=== PATIENT | female | born 1995 | race Caucasian/White ===

== ENCOUNTER 2017-11-14 10:35 | Inpatient (IN) | payer OTHER ==
[2017-11-14] MEDS ORDERED: ELECTROLYTE-148 SOLN 1,000 ML IV SCH ×2 (11:30→12:30)
[2017-11-14 11:55] VITALS: BMI 26.6
--- NOTE | 2017-11-14 12:07 | HP ---
Past Medical History - Primary Care Physician PCP:: Say Carver - Admission Chief Complaint: 22yo P0 @ 40.1wk with LOF on. 8:30pm 11/14/17 and now regular contructions. no Vaginal bleeding, + movement History of Present Illness: 1. 37lb weight gain - normal GCT 2. Former smoker 3. GBS negative, no need for prophylaxis History Source: Patient Limitations to Obtaining History: No Limitations - Past Medical History ...: 1 ...Para: 0 ...LMP: 01/30/17 ... Weeks Gestation by Dates: 41.1 ...EDC by Dates: 11/06/17 ...EDC by Sono: 11/13/17 - Past Surgical History Hx Myomectomy: No Hx Transabdominal Cerclage: No - Smoking History Smoking history: Former smoker Have you smoked in the past 12 months: No If you are a former smoker, when did you quit?: greater than 3 yrs. - only a social smoker - Alcohol/Substance Use Hx Alcohol Use: No Home Medications - Allergies Allergies/Adverse Reactions: Allergies Allergy/AdvReac Type Severity Reaction Status Date / Time No Known Drug Allergies Allergy Verified 11/14/17 11:23 Review of Systems - Review of Systems Constitutional: reports: No Symptoms Eyes: reports: No Symptoms HENT: reports: No Symptoms Neck: reports: No Symptoms Cardiovascular: reports: No Symptoms Respiratory: reports: No Symptoms Gastrointestinal: reports: No Symptoms Genitourinary: reports: No Symptoms Breasts: reports: No Symptoms Reported Musculoskeletal: reports: No Symptoms Integumentary: reports: No Symptoms Neurological: reports: No Symptoms Endocrine: reports: No Symptoms Hematology/Lymphatic: reports: No Symptoms Psychiatric: reports: No Symptoms Physical Exam - Maternity Vital Signs: Vital Signs Temperature 97.7 F 11/14/17 11:37 Pulse Rate 79 11/14/17 11:37 Respiratory Rate 20 11/14/17 11:37 Blood Pressure 107/71 11/14/17 11:37 O2 Sat by Pulse Oximetry (%) Constitutional: Yes: Well Nourished, No Distress, Calm Eyes: Yes: WNL HENT: Yes: WNL Neck: Yes: WNL Cardiovascular: Yes: WNL Lungs: Clear to auscultation Breast(s): Yes: WNL - Abdominal Exam/OB Fundal Height: 39 (EFW - 7.5lb) Number of Fetuses: Single Presentation: Vertex Contractions: Yes Regularity: Regular (Q3min) Intensity: Moderate Monitor Mode: External Heart Rate (range): 145 Heart Rate Location: Midline Category: I Accelerations: Uniform Decelerations: None - Vaginal Exam/OB Vaginal Bleediing: No Dilatation (cm): 3 Effacement (%): 100 Amniotic Membrane Status: Ruptured Nitrazine Test: Positive Amniotic Fluid: Yes: Clear Presentation: Vertex/Position Station: -3 - Physical Exam Musculoskeletal: Yes: WNL Extremities: Yes: WNL Integumentary: Yes: WNL ...Motor Strength: WNL Psychiatric: Yes: WNL Assessment/Plan 22yo P0 @ 40.1wks with PROM for 16hr in early labor No evidence of infection both mother and baby stable FHR Category 1 Mother adequate pelvis Admit to L&D IVF, Labs Desires epidural for pain control - Anesthesia aware Anticipate
[2017-11-14 12:37] LABS: BASO % 0.2 % (0-2.0); EOS % 0.2 % (0-4.5); HEMATOCRIT 39.2 % (32.4-45.2); HEMOGLOBIN 13.4 GM/dL (10.7-15.3); LYMPH % 12.3 % (8-40); MCHC 34.1 g/dl (32.0-36.0); MEAN CELL VOLUME 87.9 fl (80-96); MEAN PLT VOLUME 9.2 fl (7.5-11.1); MONO % 4.9 % (3.8-10.2); NEUT % 82.4 % (42.8-82.8); PLATELET COUNT 174 K/MM3 (134-434); RBC 4.46 M/mm3 (3.60-5.2); RDW 13.2 % (11.6-15.6); WHITE BLOOD COUNT 13.7 K/mm3 (4.0-10.0)
[2017-11-14 12:49] LABS: INR 0.93 (0.83-1.09)
[2017-11-14 12:52] LABS: ACTIVATED PTT 24.3 SECONDS (25.2-36.5)
[2017-11-14] MEDS ORDERED: FENTANYL/BUPIVACAINE/NS/PF - PCEA - 50 ML DISP.SYRIN EP ONE ×4 (12:58→23:08)
[2017-11-14] MEDS ORDERED: BUPIVACAINE HCL/PF 0.25% (2.5MG/ML) 10 ML VIAL ONE (13:13)
[2017-11-14] MEDS ORDERED: LIDO 2%/EPI 1:200000 PRESRVFRE (20 ML SDVIAL) ONE (13:14)
[2017-11-14 13:24] LABS: ANION GAP 8 MMOL/L (8-16); BLOOD UREA NITROGEN 15 mg/dL (7-18); CALCIUM 8.9 mg/dL (8.5-10.1); CHLORIDE 105 mmol/L (98-107); CO2 24 mmol/L (21-32); CREATININE 0.6 mg/dL (0.55-1.3); GLUCOSE,RANDOM 65 mg/dL (74-106); POTASSIUM 4.3 mmol/L (3.5-5.1); SODIUM 137 mmol/L (136-145)
[2017-11-14] MEDS: FENTANYL/BUPIVACAINE/NS/PF - PCEA - 50 ML DISP.SYRIN EP SCH (13:25)
[2017-11-14] MEDS ORDERED: NALOXONE HCL 0.4 MG/ML VIAL IVPUSH PRN (13:40)
[2017-11-14] MEDS ORDERED: AMPICILLIN SODIUM 2 GM VIAL ONE (14:23)
[2017-11-14] MEDS ORDERED: AMPICILLIN - 2 GM in SODIUM CHLORIDE 100 ML IVPB ONE (14:30)
[2017-11-14 15:53] LABS: RPR NONREACTIVE (NONREACTIVE)
[2017-11-14] MEDS ORDERED: AMPICILLIN SODIUM 1 GM VIAL ONE ×2 (18:00→22:39)
[2017-11-14] MEDS: AMPICILLIN - 1 GM in SODIUM CHLORIDE 100 ML IVPB SCH ×2 (18:30→22:30)
--- NOTE | 2017-11-14 18:31 | PN ---
Ante-Partal Exam - Subjective Subjective: Pt w/o complaints Vital Signs: Vital Signs Temperature 98.8 F 11/14/17 18:00 Pulse Rate 84 11/14/17 17:25 Respiratory Rate 20 11/14/17 17:25 Blood Pressure 141/79 11/14/17 17:25 O2 Sat by Pulse Oximetry (%) 100 11/14/17 17:25 Bleeding: Yes Bleeding Description: Mild Headache: No Visual changes: No Right upper quadrant pain: No Pain (scale 1-10): 0 - Contractions Contractions: Yes (q2-3min) Regularity: Regular Intensity: Unaware Monitor Mode: External - Exam during Labor Heart Rate: 135 Variability: Moderate Heart Rate Location: Midline Category: II Monitor Accelerations: Present Monitor Decelerations: Variable (occasional to 120) Exam: Vaginal Dilatation (cm): 7 Effacement (%): 90 Amniotic Membrane Status: Leaking Presentation: Vertex Station: -1 - Intrapartum Hemorrhage Risk Medium Risk Factors: None High Risk Factors: None Risk Score: 0 Risk Level: Low Risk - Assessment/Plan Assessment/Plan: 22yo P0 with spont active labor. Pt with progressing dilation. Fetus with occasional variables but o/w reassuring tracing. Plan to monitor labor.
--- NOTE | 2017-11-14 20:44 | PN ---
Ante-Partal Exam - Subjective Subjective: No complaints Vital Signs: Vital Signs Temperature 98.5 F 11/14/17 20:00 Pulse Rate 102 H 11/14/17 20:00 Respiratory Rate 17 11/14/17 20:00 Blood Pressure 120/67 11/14/17 20:00 O2 Sat by Pulse Oximetry (%) 98 11/14/17 20:00 Bleeding: Yes Bleeding Description: Mild Headache: No Visual changes: No Right upper quadrant pain: No Pain (scale 1-10): 0 - Contractions Contractions: Yes (q2-3min) Regularity: Regular Intensity: Moderate Monitor Mode: External - Exam during Labor Heart Rate: 140 Variability: Moderate Heart Rate Location: Midline Category: II Monitor Accelerations: Present Monitor Decelerations: Variable (occasional) Exam: Vaginal Dilatation (cm): 7 Effacement (%): 90 Amniotic Membrane Status: Leaking Presentation: Vertex Station: -1 - Intrapartum Hemorrhage Risk Medium Risk Factors: None High Risk Factors: None Risk Score: 0 Risk Level: Low Risk - Assessment/Plan Assessment/Plan: 89yo P0 with spontaneous active labor. The fetus with Category II tracing due to occasional variable decels but has moderate variability and accels. The pt has a heavy bloody show but no active vaginal bleeding, stable VS. The pt with arrest of dilation. The contractions are q2-3 minutes and I plan on monitoring labor w/o oxytocin at this time.
[2017-11-14 22:00] LABS: BASO % 0.5 % (0-2.0); EOS % 0.2 % (0-4.5); HEMATOCRIT 39.5 % (32.4-45.2); HEMOGLOBIN 13.5 GM/dL (10.7-15.3); LYMPH % 15.3 % (8-40); MCH 30.5 pg (25.7-33.7); MCHC 34.2 g/dl (32.0-36.0); MEAN CELL VOLUME 89.2 fl (80-96); MEAN PLT VOLUME 9.6 fl (7.5-11.1); MONO % 7.3 % (3.8-10.2); NEUT % 76.7 % (42.8-82.8); PLATELET COUNT 196 K/MM3 (134-434); RBC 4.43 M/mm3 (3.60-5.2); RDW 13.2 % (11.6-15.6)
[2017-11-14 22:24] LABS: INR 0.96 (0.83-1.09); PROTHROMBIN TIME (PATIENT) 11.3 SEC (9.7-13.0)
[2017-11-14 22:27] LABS: ACTIVATED PTT 24.6 SECONDS (25.2-36.5)
[2017-11-14] MEDS ORDERED: OXYTOCIN 30 UNITS in 0.9% NS 30 UNIT/500 ML INFUS.BAG IVPB ONE (22:39)
[2017-11-15] MEDS ORDERED: AMPICILLIN SODIUM 1 GM VIAL ONE ×2 (02:19→06:14)
[2017-11-15] MEDS: AMPICILLIN - 1 GM in SODIUM CHLORIDE 100 ML IVPB SCH ×2 (02:30→06:30)
[2017-11-15] MEDS ORDERED: FENTANYL/BUPIVACAINE/NS/PF - PCEA - 50 ML DISP.SYRIN EP ONE ×2 (02:31→06:19)
[2017-11-15] MEDS ORDERED: LIDOCAINE HCL 1% PRESERVATIVE FREE - 30ML VIAL ONE (04:52)
[2017-11-15] MEDS ORDERED: OXYTOCIN 20 UNITS in 0.9% NS 20 UNIT/1,000 ML INFUS.BAG IV ONE ×2 (04:52→11:27)
[2017-11-15] MEDS ORDERED: OXYTOCIN 30 UNITS in 0.9% NS 30 UNIT/500 ML INFUS.BAG IVPB ONE (07:24)
--- NOTE | 2017-11-15 07:30 | PN ---
Ante-Partal Exam - Subjective Subjective: No complaints Vital Signs: Vital Signs Temperature 98.3 F 11/15/17 07:00 Pulse Rate 71 11/15/17 06:45 Respiratory Rate 17 11/15/17 06:45 Blood Pressure 129/76 11/15/17 06:45 O2 Sat by Pulse Oximetry (%) 100 11/15/17 06:45 Bleeding: No Headache: No Visual changes: No Right upper quadrant pain: No Pain (scale 1-10): 4 - Contractions Contractions: Yes Regularity: Regular Intensity: Strong Monitor Mode: External - Exam during Labor Heart Rate: 140 Variability: Moderate Heart Rate Location: Midline Category: I Monitor Accelerations: Present Monitor Decelerations: None Exam: Vaginal Dilatation (cm): 8.5 Effacement (%): 90 Presentation: Vertex Station: 0 - Intrapartum Hemorrhage Risk Medium Risk Factors: None High Risk Factors: None Risk Score: 0 Risk Level: Low Risk - Assessment/Plan Assessment/Plan: Arrest of dilation Plan to proceed with C/S. Pt agreed.
[2017-11-15] MEDS ORDERED: LIDOCAINE HCL/PF 2% SDV 5ML VIAL ONE ×3 (08:19→08:51)
[2017-11-15] MEDS ORDERED: ELECTROLYTE-148 SOLN 500 ML IV ONE (08:20)
[2017-11-15] MEDS ORDERED: morphine SULFATE/Preservative Free 0.5 MG/ML (1cc Syringe) ONE ×7 (08:36)
[2017-11-15] MEDS ORDERED: ELECTROLYTE-148 SOLN 1,000 ML IV SCH ×2 (09:00→11:15)
[2017-11-15] MEDS ORDERED: MIDAZOLAM HCL 2 MG/2 ML SINGLE DOSE VIAL ONE (09:10)
[2017-11-15] MEDS ORDERED: ONDANSETRON 4 MG/2 ML VIAL IVPUSH PRN (09:32)
[2017-11-15] MEDS ORDERED: LACTATED RINGERS SOLUTION 1,000 ML IV SCH (09:45)
[2017-11-15 10:08] LABS: ARTERIAL BLD GAS O2 SATURATION 9.6 % (90-98.9); ARTERIAL BLOOD GAS BASE EXCESS -2.6 meq/l (-2-2); ARTERIAL BLOOD GAS PCO2 56.1 mmHg (35-45); ARTERIAL BLOOD GAS pH 7.27 (7.35-7.45)
[2017-11-15] MEDS ORDERED: IBUPROFEN 800 MG/8 ML IJ IVPB ONE (10:10)
[2017-11-15 10:12] LABS: VENOUS PC02 37.3 mmHg (38-52); VENOUS PH 7.38 (7.32-7.42); VENOUS PO2 34.1 mmHg (28-48)
[2017-11-15] MEDS ORDERED: CITRIC ACID/SODIUM CITRATE 30 ML UNIT-DOSE CUP PO ONE (11:15)
[2017-11-15] MEDS: OXYTOCIN 20 UNITS in 0.9% NS 20 UNIT/1,000 ML INFUS.BAG IV SCH ×2 (11:25→21:30)
[2017-11-15] MEDS ORDERED: OXYTOCIN 20 UNITS in 0.9% NS 1000 ML INFUS.BAG IV ONE (11:25)
[2017-11-15] MEDS ORDERED: oxyCODONE HCL 5 MG TABLET PO PRN ×2 (14:44)
[2017-11-15] MEDS ORDERED: METHYLERGONOVINE MALEATE 0.2 MG/1 ML AMP IM PRN (14:44)
[2017-11-15] MEDS: IBUPROFEN 800 MG/8 ML IJ IVPB PRN ×2 (15:58→21:57)
--- NOTE | 2017-11-16 01:13 | PN ---
Post Progress Note - Subjective Subjective: Patient without acute complaints. Tolerating clears, without complaints of nausea or vomiting. No ambulation yet. Denies fevers or chills. with supplementation Pain well controlled Hernandez removed this AM, no voiding yet. Denies flatus. Post Day: 1 Type of Delivery: Primary C/S Vital Signs: Vital Signs Temperature 98.1 F 11/15/17 20:30 Pulse Rate 56 L 11/15/17 20:30 Respiratory Rate 20 11/16/17 00:56 Blood Pressure 107/54 L 11/15/17 20:30 O2 Sat by Pulse Oximetry (%) 100 11/15/17 10:45 Breast Exam: Yes: Soft Uterus: Yes: Fundus Firm Incision: Yes: Dressing dry and intact Abdomen/GI: Yes: Abdomen soft, Abdominal Distention (mild, soft), Passing flatus , Tolerating PO Lochia: Yes: Serosa Lochia, amount: Small Extremities: Yes: Calves non-tender, Edema (trace) Activity: Ambulating - Labs Labs: CBC WBC 16.0 K/mm3 (4.0-10.0) H 11/14/17 21:00 RBC 4.43 M/mm3 (3.60-5.2) 11/14/17 21:00 Hgb 13.5 GM/dL (10.7-15.3) 11/14/17 21:00 Hct 39.5 % (32.4-45.2) 11/14/17 21:00 MCV 89.2 fl (80-96) 11/14/17 21:00 MCH 30.5 pg (25.7-33.7) 11/14/17 21:00 MCHC 34.2 g/dl (32.0-36.0) 11/14/17 21:00 RDW 13.2 % (11.6-15.6) 11/14/17 21:00 Plt Count 196 K/MM3 (134-434) 11/14/17 21:00 MPV 9.6 fl (7.5-11.1) 11/14/17 21:00 Absolute Neuts (auto) 12.2 K/mm3 (1.5-8.0) H 11/14/17 21:00 Neutrophils % 76.7 % (42.8-82.8) 11/14/17 21:00 Lymphocytes % 15.3 % (8-40) D 11/14/17 21:00 Monocytes % 7.3 % (3.8-10.2) 11/14/17 21:00 Eosinophils % 0.2 % (0-4.5) 11/14/17 21:00 Basophils % 0.5 % (0-2.0) 11/14/17 21:00 Nucleated RBC % 0 % (0-0) 11/14/17 21:00 Assessment/Plan 22 yo POD #1 s/p 1 CD, afebrile, vital signs stable, doing well 1. Continue routine postoperative care. 2. AM CBC without signs of anemia 3. Rh positive status, no rhogam indicated. 4. Encourage ambulation and incentive spirometer use 5. Continue oral pain medication 6. Anticipate discharge home postoperative day #3 or #4
[2017-11-16] MEDS: IBUPROFEN 800 MG/8 ML IJ IVPB PRN (05:10)
[2017-11-16] MEDS: OXYTOCIN 20 UNITS in 0.9% NS 20 UNIT/1,000 ML INFUS.BAG IV SCH (07:00)
[2017-11-16 08:35] LABS: BASO % 0.1 % (0-2.0); EOS % 0.8 % (0-4.5); HEMATOCRIT 34.8 % (32.4-45.2); HEMOGLOBIN 11.6 GM/dL (10.7-15.3); LYMPH % 16.1 % (8-40); MCH 29.9 pg (25.7-33.7); MCHC 33.3 g/dl (32.0-36.0); MEAN CELL VOLUME 89.7 fl (80-96); MEAN PLT VOLUME 9.4 fl (7.5-11.1); PLATELET COUNT 150 K/MM3 (134-434); RBC 3.87 M/mm3 (3.60-5.2); RDW 13.6 % (11.6-15.6); WHITE BLOOD COUNT 13.8 K/mm3 (4.0-10.0)
--- NOTE | 2017-11-16 13:10 | PN ---
Progress Note (short form) - Note Progress Note: Anesthesia POD#1 S/P under Epidural Anesthesia VSS,no N/V,no pain,legs strong. No complications to anesthesia seen. Maggie Rajan MD.
[2017-11-16] MEDS ORDERED: BISACODYL 10 MG SUPP.RECT RC PRN (14:44)
[2017-11-16] MEDS: IBUPROFEN 600 MG TABLET (FP) PO PRN (17:33)
[2017-11-16] MEDS: ACETAMINOPHEN 325 MG TABLET (FP) PO PRN (17:35)
[2017-11-16] MEDS: SIMETHICONE 80 MG TAB.CHEW (FP) PO PRN (17:35)
[2017-11-16] MEDS: FENTANYL/BUPIVACAINE/NS/PF - PCEA - 50 ML DISP.SYRIN EP SCH (21:24)
[2017-11-16] MEDS: AMPICILLIN - 1 GM in SODIUM CHLORIDE 100 ML IVPB SCH (21:25)
[2017-11-17] MEDS: IBUPROFEN 600 MG TABLET (FP) PO PRN ×4 (04:29→23:05)
[2017-11-17] MEDS: SIMETHICONE 80 MG TAB.CHEW (FP) PO PRN ×4 (04:29→23:05)
[2017-11-17] MEDS: ACETAMINOPHEN 325 MG TABLET (FP) PO PRN ×4 (04:30→23:05)
--- NOTE | 2017-11-17 07:03 | PN ---
Progress Note (short form) - Note Progress Note: pod 2 doing well, no c/o . voids ok. passing gas CBC, BMP 11/16/17 07:12 11/14/17 12:10 Last Vital Signs Temp Pulse Resp BP Pulse Ox 98.5 F 56 L 18 123/70 100 11/16/17 21:20 11/16/17 21:20 11/16/17 21:20 11/16/17 21:20 11/15/17 10:45 abdomen soft, no distension, no cva incision dry, clean no calf tenderness plan ambulate , cbc in am
--- NOTE | 2017-11-17 08:53 | PN ---
Delivery - Delivery Section: Primary, Low Flap Transverse Type of Anesthesia: Epidural Episiotomy/Laceration: None EBL (cc): 600 Delivery, Single - Stages of Labor Date 1st Stage Initiatied: 11/14/17 Time 1st Stage Initiated: 00:00 Date of Delivery: 11/15/17 Time of Delivery: 09:09 Time Placenta Delivered: 09:10 Placenta: Yes: Expressed, Manual Removal - Condition of Advisory Services Associate/Hoist Mechanic Present: Yes Name: Antionette Barron Gender: Female Weight: 3.685 kg Position: Left, OA Total Hours ROM (Hrs/Mins): 36 MIN 31HRS - 1 Minute Total Score: 9 5 Minutes Total Score: 9 - Feeding Plan Initial Plan: Exclusive throughout hospitalization
--- NOTE | 2017-11-17 09:56 | OP ---
DATE OF OPERATION: 11/15/2017 PREOPERATIVE DIAGNOSES: at estimated gestational age of 40 weeks and 2 days, arrest of dilation. POSTOPERATIVE DIAGNOSES: at estimated gestational age of 40 weeks and 2 days, arrest of dilation. PROCEDURE: Primary low transverse section via Pfannenstiel skin incision. SURGEON: Say Carver MD LABEL STAMPER: SANDY Patrick ANESTHESIA: Epidural. COMPLICATIONS: None. ESTIMATED BLOOD LOSS: 600 mL. URINE OUTPUT: 300 mL. INTRAVENOUS FLUIDS: 1700 mL. PATHOLOGY: Placenta. FINDINGS: A live baby girl in vertex presentation, no meconium in amniotic fluid, Apgars 9 and 9, weight 3685 g. Normal uterus, normal fallopian tubes and normal ovaries. PROCEDURE: The patient was met preoperatively. Risks, benefits and alternatives of surgery were discussed in details. All questions were answered. The patient was brought to the OR with the IV running. She was placed on the surgical table in a supine position with a leftward tilt. The level of epidural anesthesia was checked and found to be adequate. The timeout process was conducted as per standard protocol. The patient was prepped and draped in the usual sterile fashion. The surgeons then proceeded with the operation. A Pfannenstiel skin incision was made with a knife approximately 2 cm above the pubic symphysis. The incision was taken down to the level of fascia. The fascia was incised in the midline and the incision was extended bilaterally using Abreu scissors. The fascia was then dissected away from the rectus muscles superiorly and inferiorly. The rectus muscles were in the midline and the peritoneum was identified. The peritoneum was entered sharply. The peritoneal incision was extended superiorly and inferiorly using Metzenbaum scissors. The bladder peritoneum was dissected away from the lower uterine segment. The bladder was reflected downwards. The uterus was incised transversely in the lower uterine segment. The incision was extended bilaterally using bandage scissors. The baby was delivered from vertex presentation without complications. The baby was crying spontaneously. The umbilical cord was clamped and cut. The baby was handed to the waiting maintenance technician 3rd shift. The placenta was then extracted and removed manually. The uterus was cleared of all clots and debris using laparotomy laps. The uterine incision was repaired using a 0 Biosyn suture with good hemostasis and approximation. The uterine incision was then imbricated using a secondary layer of closure with a 0 Biosyn suture. Once again good hemostasis was confirmed. The bladder peritoneum was then reapproximated using a 2-0 chromic suture. The operative site was irrigated using copious amounts of normal saline. Once the saline was aspirated good hemostasis was noted. The uterus was observed to be well contracted. The abdominal peritoneum was then closed using a 2-0 chromic suture. The rectus muscles were approximated in the midline using several interrupted 2-0 chromic sutures. The fascia was closed using a 0 Vicryl suture with good approximation and hemostasis. The subcutaneous adipose tissues were approximated to eliminate space. The skin was closed using a 4-0 Biosyn suture with a subcutaneous stitch. Sponge, lap, needle counts were correct. The patient tolerated her procedure well and was transferred to recovery room in stable condition. Jonathan [id number]
[2017-11-18 07:57] LABS: BASO % 0.4 % (0-2.0); EOS % 2.6 % (0-4.5); HEMATOCRIT 30.4 % (32.4-45.2); HEMOGLOBIN 10.7 GM/dL (10.7-15.3); LYMPH % 24.5 % (8-40); MCHC 35.1 g/dl (32.0-36.0); MEAN CELL VOLUME 88.5 fl (80-96); MEAN PLT VOLUME 8.7 fl (7.5-11.1); MONO % 6.5 % (3.8-10.2); PLATELET COUNT 144 K/MM3 (134-434); RBC 3.44 M/mm3 (3.60-5.2); RDW 13.4 % (11.6-15.6); WHITE BLOOD COUNT 9.7 K/mm3 (4.0-10.0)
[2017-11-18] MEDS: ACETAMINOPHEN 325 MG TABLET (FP) PO PRN ×2 (08:14→15:36)
[2017-11-18] MEDS: IBUPROFEN 600 MG TABLET (FP) PO PRN ×2 (08:14→15:37)
[2017-11-18] MEDS: SIMETHICONE 80 MG TAB.CHEW (FP) PO PRN ×2 (08:14→15:36)
[2017-11-18 08:27] VITALS: BP 134/75; PULSE 56; TEMP 97.6
--- NOTE | 2017-11-18 11:30 | DS ---
Physical Exam-INSURANCE FOLLOW UP SPECIALIST Vital Signs: Vital Signs Temperature 97.6 F 11/18/17 08:26 Pulse Rate 56 L 11/18/17 08:26 Respiratory Rate 18 11/18/17 08:26 Blood Pressure 134/75 11/18/17 08:26 O2 Sat by Pulse Oximetry (%) 100 11/15/17 10:45 Constitutional: Yes: Well Nourished, No Distress, Calm Eyes: Yes: WNL, Conjunctiva Clear HENT: Yes: WNL, Atraumatic, Normocephalic Neck: Yes: WNL, Supple, Trachea Midline Cardiovascular: Yes: WNL, Regular Rate and Rhythm Respiratory: Yes: WNL, Regular, CTA Bilaterally Gastrointestinal: Yes: WNL, Normal Bowel Sounds, Soft ...Rectal Exam: Yes: Deferred Renal/: Yes: WNL ....Post : Yes: Uterus firm, Uterus non-tender, Slight lochia rubra Breast(s): Yes: WNL Musculoskeletal: Yes: WNL Extremities: Yes: WNL Edema: Yes Edema: LLE: Trace, RLE: Trace Integumentary: Yes: WNL Wound/Incision: Yes: Clean/Dry, Well Approximated, Sutures Intact, Steri Strips , Open to air Neurological: Yes: WNL, Alert, Oriented ...Motor Strength: WNL Psychiatric: Yes: WNL, Alert, Oriented Labs: CBC, BMP 11/18/17 07:25 11/14/17 12:10 Delivery - Delivery Section: Primary, Low Flap Transverse Type of Anesthesia: Epidural Episiotomy/Laceration: None EBL (cc): 600 Delivery, Single - Stages of Labor Date 1st Stage Initiatied: 11/14/17 Time 1st Stage Initiated: 00:00 Date of Delivery: 11/15/17 Time of Delivery: 09:09 Date Placenta Delivered: 11/15/17 Time Placenta Delivered: 09:10 Placenta: Yes: Expressed, Manual Removal, Normal Configuration - Condition of Infant Heavy Equipment Sales Manager/Lump Roller Present: Yes Name: Antionette Barron Gender: Female Weight: 3.685 kg Position: Left, OA Total Hours ROM (Hrs/Mins): 36 MIN 31HRS - 1 Minute Total Score: 9 5 Minutes Total Score: 9 - [place] Feeding Plan Initial Plan: Exclusive throughout hospitalization Discharge Summary Reason For Visit: LABOR ADMISSION Spontaneous labor Arrest of dilation Procedures: Principal: Primary LT C/S Hospital Course: Normal recovery Condition: Good - Instructions Diet, Activity, Other Instructions: Physical activity Resume your normal everyday activity as tolerated no heavy lifting or exercise until seen by your surgeon. You may walk unlimited kin of and climb stairs. You may resume driving the car when you feel safe and comfortable behind the wheel. No sexual activity as instructed. Wound care If you have a bandage, leave it on, and keep dry for 48-72 hours. After that time discard the outer bandage. If they are tapes on the skin under the out of bandage leave them in place. They will peel off in the next 7 to 10 days. Do Not Peel them off. You may shower the day after surgery. If there are tapes present on the skin, you may shower over them. Diet There are no dietary restrictions. Eat healthy, high-fiber foods. Drink 6 to 8 glasses of liquid each day. This will assist in keeping your bowels are regular. Pain management You may take Tylenol or acetaminophen or Ibuprofen (for example, Motrin, Advil etc.) from my pain prescription medication is ordered should be taken as prescribed for moderate to severe pain. Call MD for any of the following: Severe pain not relieved by medication Fever of 101 or higher Excessive bleeding or drainage on dressing Inability to urinate Referrals: Say Carver MD [Staff Physician] - Disposition: HOME
== END 2017-11-18 18:00 | disposition home or self-care (01) | DRG 540 ==
LOC: JLDR 10:35 → J3W 11-15 11:45 → UNDODISIN 11-15 14:19 → J3W 11-15 19:46
PROVIDERS: ADMIT Obstetrics & Gynecology; ATTEND Obstetrics & Gynecology
PROC: 10D00Z1 Extraction of Products of Conception, Low, Open Approach (ICD-10-PCS; principal; 2017-11-15)
DX: O62.0 Primary inadequate contractions (principal); O48.0 Post-term pregnancy; Z3A.40 40 weeks gestation of pregnancy; Z37.0 Single live birth
CPT/HCPCS: 36415; 36600; 71046-TC-FY; 80048; 82803; 85025; 85384; 85610; 85730; 86593; 86850; 86900; 86901; 87389

== ENCOUNTER 2024-01-01 06:15 | Inpatient (IN) | payer OTHER ==
[2024-01-01] MEDS: ELECTROLYTE-148 SOLN 500 ML IV ONE (06:30)
[2024-01-01] MEDS ORDERED: ELECTROLYTE-148 SOLN 1,000 ML IV SCH (07:00)
[2024-01-01] MEDS: ELECTROLYTE-148 SOLN 1,000 ML IV SCH (07:00)
[2024-01-01] MEDS: CITRIC ACID/SODIUM CITRATE 30 ML UNIT-DOSE CUP PO ONE (07:00)
[2024-01-01 07:21] VITALS: BMI 28.1
[2024-01-01] MEDS ORDERED: ONDANSETRON 4 MG/2 ML VIAL ONE (07:49)
[2024-01-01] MEDS ORDERED: KETOROLAC TROMETHAMINE 30 MG/1 ML VIAL ONE (07:49)
[2024-01-01] MEDS ORDERED: OXYTOCIN 10 UNITS/ML VIAL ONE (07:49)
[2024-01-01] MEDS ORDERED: PHENYLEPHRINE HCL 10 MG/1 ML SINGLE DOSE VIAL ONE (07:49)
[2024-01-01] MEDS ORDERED: morphine SULFATE (PF) 1 MG/2 ML SYRINGE ONE (07:49)
[2024-01-01] MEDS ORDERED: ceFAZolin SODIUM 1 GM VIAL ONE (07:50)
[2024-01-01] MEDS ORDERED: FENTANYL CITRATE/PF 50 MCG/ML VIAL ONE (07:50)
[2024-01-01] MEDS ORDERED: ONDANSETRON 4 MG/2 ML VIAL IVPUSH PRN (09:37)
[2024-01-01] MEDS ORDERED: WITCH HAZEL 50% (TUCKS) 40 PAD/JAR PAD TP PRN (10:30)
[2024-01-01] MEDS ORDERED: BENZOCAINE 20% 57 GM BOTTLE TP PRN (10:30)
[2024-01-01] MEDS: METHYLERGONOVINE MALEATE 0.2 MG/1 ML AMP IM PRN (10:55)
[2024-01-01 11:12] LABS: CORD BASE EXCESS -2.9 mmol/L (0-2); CORD HCO3 23.2 mmHg (20-29); CORD pH 7.331 (7.14-7.44)
[2024-01-01 11:16] LABS: CORD HCO3 25.1 mmHg (20-29); CORD PCO2 56.8 mmHg (30-78); CORD pH 7.263 (7.14-7.44)
[2024-01-01] MEDS ORDERED: IBUPROFEN (CALDOLOR) 800 MG/200 ML PREMIX BAGS IVPB ONE (11:37)
[2024-01-01] MEDS: IBUPROFEN 800 MG/8 ML IJ IVPB PRN (11:40)
[2024-01-01] MEDS ORDERED: OXYTOCIN 20 UNITS in 0.9% NS 20 UNIT/1,000 ML INFUS.BAG IV ONE (12:15)
[2024-01-01 13:35] LABS: HIV INTERPRETATION NEGATIVE (NEGATIVE)
[2024-01-01] MEDS: OXYTOCIN 20 UNITS in 0.9% NS 20 UNIT/1,000 ML INFUS.BAG IV SCH (20:51)
[2024-01-01] MEDS ORDERED: oxyCODONE HCL 5 MG TABLET PO PRN ×2 (22:30)
[2024-01-02 06:50] LABS: BASO % 0.3 % (0-2.0); EOS % 1.1 % (0-4.5); HEMOGLOBIN 10.4 GM/dL (10.7-15.3); LYMPH % 21.5 % (8-40); MCH 28.3 pg (25.7-33.7); MCHC 33.6 g/dl (32.0-36.0); MEAN CELL VOLUME 84.1 fl (80-96); MEAN PLT VOLUME 8.5 fl (7.5-11.1); MONO % 8.1 % (3.8-10.2); PLATELET COUNT 198 10^3/uL (134-434); RBC 3.69 M/mm3 (3.60-5.2); RDW 13.7 % (11.6-15.6); WHITE BLOOD COUNT 13.3 K/mm3 (4.0-10.0)
[2024-01-02] MEDS: ENOXAPARIN NA (PORCINE) 40 MG/0.4 ML DISP.SYRIN SQ SCH (10:12)
[2024-01-02] MEDS: PRENATAL VITAMINS W/ FOLIC ACID TABLET (FP) PO SCH (10:13)
[2024-01-02] MEDS ORDERED: BISACODYL 10 MG SUPP.RECT RC PRN (10:30)
[2024-01-02] MEDS: IBUPROFEN 600 MG TABLET (FP) PO PRN (13:09)
[2024-01-03] MEDS: SIMETHICONE 80 MG TAB.CHEW (FP) PO PRN (07:18)
[2024-01-03] MEDS: ACETAMINOPHEN 325 MG TABLET (FP) PO PRN (21:14)
[2024-01-03] MEDS: SENNOSIDES/DOCUSATE COMBO (SENNA PLUS) TABLET (UD) PO PRN (21:14)
[2024-01-03 21:15] VITALS: RESP 18
[2024-01-04 10:15] LABS: BASO % 0.5 % (0-2.0); EOS % 1.3 % (0-4.5); HEMATOCRIT 32.1 % (32.4-45.2); HEMOGLOBIN 10.6 GM/dL (10.7-15.3); LYMPH % 21.9 % (8-40); MCH 28.3 pg (25.7-33.7); MEAN CELL VOLUME 85.6 fl (80-96); MEAN PLT VOLUME 8.2 fl (7.5-11.1); NEUT % 70.3 % (42.8-82.8); PLATELET COUNT 238 10^3/uL (134-434); RBC 3.75 M/mm3 (3.60-5.2); RDW 13.8 % (11.6-15.6); WHITE BLOOD COUNT 11.6 K/mm3 (4.0-10.0)
[2024-01-04 10:17] VITALS: BP 121/75; PULSE 74; TEMP 98
== END 2024-01-04 17:02 | disposition home or self-care (01) | DRG 788 ==
LOC: JLDR 06:15 → J3W 12:20
PROVIDERS: ADMIT Obstetrics & Gynecology; ATTEND Obstetrics & Gynecology
PROC: 10D00Z1 Extraction of Products of Conception, Low, Open Approach (ICD-10-PCS; principal; 2024-01-01)
DX: O34.211 Maternal care for low transverse scar from previous cesarean delivery (principal); Z3A.39 39 weeks gestation of pregnancy; Z37.0 Single live birth
CPT/HCPCS: 36415; 36600; 59409; 82803; 85025; 86803; 86850; 86900; 86901; 87389; 88307-TC; 94010